=== PATIENT | male | born 1995 | race Caucasian/White ===

== ENCOUNTER 2016-09-29 12:50 | Emergency (ER) | payer SELFPAY ==
[2016-09-29 13:04] VITALS: BP 138/83
[2016-09-29 13:55] LABS: Bilirubin,Urine NEG (Negative); Blood,Urine NEG (Negative); Ketones,Urine NEG (Negative); Leukocyte Esterase,Urine NEG (Negative); Nitrite,Urine NEG (Negative); Protein,Urine <15 mg/dL mg/dL (Negative); Urobilinogen,Urine < 2.0 mg/dL (<2.0); WBC,Urine < 1.0 /HPF (0.0-6.0)
--- NOTE | 2016-09-29 18:48 | Emergency Department Report ---
Entered by GILBERT NAQVI, acting as scribe for LIZETT KOO NP. ED Male HPI - General Chief complaint: Urogenital-Male Stated complaint: CUTS IN GROIN AREA Time Seen by Provider: 09/29/16 13:26 Source: patient Mode of arrival: Ambulatory Limitations: No Limitations - History of Present Illness Initial comments: This is a 21 y/o male, nontoxic, well nourished in appearance, no acute signs of distress c/o with small cuts on his penis for 1 month. Associated symptoms include penile pain during sexual intercourse but he denies dysuria, HIV, abdominal pain, groin pain, discharge, chest pain, SOB, abd pain, back pain, fever and chills. Pain is described as 2/10 on a severity scale. No alleviating factors but aggravated by sexual intercourse. NKDA. LOPEZ Complaint: other (small cuts on penis ) Onset/Timin -: month(s) (1) Location: penis Radiation: none Severity: mild Severity scale (0 -10): 2 Improves with: none Worsens with: none other (penile pain, no abdominal pain, no chest pain, no SOB, no fever, no chills). denies: discharge, swelling, mass, rash, urinary retention, blood in urine, dysuria, fever, nausea/vomiting, incontinence - Related Data Sexually active: Yes Previous Rx's Medication Instructions Recorded Last Taken Type Acyclovir [Zovirax Cap] 200 mg PO 5XD 10 Days 09/29/16 Unknown Rx Allergies Allergy/AdvReac Type Severity Reaction Status Date / Time No Known Allergies Allergy Unverified 09/29/16 12:59 ED Review of Systems Comment: All other systems reviewed and negative Constitutional: denies: chills, fever Eyes: denies: eye pain, eye discharge, vision change ENT: denies: ear pain, throat pain Respiratory: denies: shortness of breath Cardiovascular: denies: chest pain Endocrine: no symptoms reported Gastrointestinal: denies: abdominal pain Genitourinary: other (penile pain). denies: dysuria Musculoskeletal: denies: back pain, joint swelling, arthralgia Skin: other (small cuts on penis) Neurological: denies: headache, weakness, paresthesias Psychiatric: denies: anxiety, depression Hematological/Lymphatic: denies: easy bleeding, easy bruising ED Past Medical Hx - Past Medical History Previous Medical History?: No - Surgical History Past Surgical History?: No - Social History Smoking Status: Current Every Day Smoker Substance Use Type: Alcohol, Marijuana - Medications Home Medications: Home Medications Medication Instructions Recorded Confirmed Last Taken Type Acyclovir [Zovirax Cap] 200 mg PO 5XD 10 Days 09/29/16 Unknown Rx ED Physical Exam - General Limitations: No Limitations General appearance: alert, in no apparent distress - Head Head exam: Present: atraumatic, normocephalic, normal inspection - Eye Eye exam: Present: normal appearance, PERRL, EOMI. Absent: scleral icterus, conjunctival injection, nystagmus, periorbital swelling, periorbital tenderness Pupils: Present: normal accommodation - ENT ENT exam: Present: normal exam, normal orophraynx, mucous membranes moist, TM's normal bilaterally, normal external ear exam - Neck Neck exam: Present: normal inspection, full ROM. Absent: tenderness, meningismus, lymphadenopathy, thyromegaly - Respiratory Respiratory exam: Present: normal lung sounds bilaterally. Absent: respiratory distress, wheezes, rales, rhonchi, stridor, chest wall tenderness, accessory muscle use, decreased breath sounds, prolonged expiratory - Cardiovascular Cardiovascular Exam: Present: regular rate, normal rhythm, normal heart sounds. Absent: bradycardia, tachycardia, irregular rhythm, systolic murmur, diastolic murmur, rubs, gallop - GI/Abdominal GI/Abdominal exam: Present: soft, normal bowel sounds. Absent: distended, tenderness, guarding, rebound, rigid, diminished bowel sounds - Rectal Rectal exam: Present: deferred - exam: Present: normal inspection. Absent: testicular tenderness, urethral discharge, scrotal swelling, vertical testicular lie, circumcision External exam: Present: normal external exam, lesions (0.5 cm circular x3 lesion to the penile shaft). Absent: erythema, swelling, lacerations, ecchymosis, bleeding - Extremities Exam Extremities exam: Present: normal inspection, full ROM, normal capillary refill. Absent: tenderness, pedal edema, joint swelling, calf tenderness - Back Exam Back exam: Present: normal inspection, full ROM. Absent: tenderness, CVA tenderness (R), CVA tenderness (L), muscle spasm, paraspinal tenderness, vertebral tenderness, rash noted - Neurological Exam Neurological exam: Present: alert, oriented X3, CN II-XII intact, normal gait - Psychiatric Psychiatric exam: Present: normal affect, normal mood - Skin Skin exam: Present: warm, dry, intact, normal color. Absent: rash ED Course Vital Signs 09/29/16 12:59 Temperature 98.2 F Pulse Rate 76 Respiratory 18 Rate Blood Pressure 138/83 O2 Sat by Pulse 100 Oximetry ED Medical Decision Making - Medical Decision Making Ed course: this is a 21-year-old male that presents with genital herpes. 1 after physical exam patient received Acyclovir PO by mouth at the time of discharge. Patient was instructed not to consume any alcohol products. 2- patient was instructed to follow up with his primary care doctor in 3-5 days or if symptoms worsen report back to emergency room as was possible. 3- at time time of discharge, the patient does not seem toxic or ill in appearance. No acute signs of distress noted. Patient agrees to discharge treatment plan of care. No further questions noted by the patient. 4- pt was instructed to return to medical records for g/c rsults in 3-5 days. ED Disposition Clinical Impression: Genital herpes simplex Qualifiers: Herpes simplex infection site: unspecified Qualified Code(s): A60.00 - Herpesviral infection of urogenital system, unspecified Disposition: DC-01 TO HOME OR SELFCARE Is pt being admited?: No Does the pt Need Aspirin: No Condition: Stable Instructions: Acyclovir (By mouth), Genital Herpes Simplex (ED), Safe Sex (ED) Additional Instructions: Take Acyclovir as prescribed. Do not consume any alcohol while taking medication before and after treatment. Follow-up with her primary care doctor in 3-5 days. If symptoms worsen or continue or worsen report back to emergency room as was possible. Report back to [facility] medical records to obtain your gonorrhea and chlamydia results in 3-5 days. Prescriptions: Acyclovir [Zovirax Cap] 200 mg PO 5XD 10 Days Referrals: LOVE THOMAS MD [Primary Care Provider] - 3-5 Days [facility] [Outside] - 3-5 Days [facility] [Outside] - 3-5 Days MIRIAN HERNANDEZ MD [Staff Physician] - 3-5 Days Forms: Work/School Release Form(ED) This documentation as recorded by the DRISS esparza ELIZABETH,accurately reflects the service I personally performed and the decisions made by me,LIZETT KOO, RUDOLPH.
== END 2016-09-29 14:52 | disposition home or self-care (01) ==
LOC: ED 12:50
DX: A60.00 Herpesviral infection of urogenital system, unspecified (principal); F17.200 Nicotine dependence, unspecified, uncomplicated; F12.10 Cannabis abuse, uncomplicated
CPT/HCPCS: 81001; 87591; 99283